=== PATIENT | male | born 1980 | race Caucasian/White ===

== ENCOUNTER 2017-03-15 12:24 | Inpatient (IN) ==
--- NOTE | 2017-03-15 13:29 | Emergency Department Note ---
Belén Butler Gwan, am scribing for, and in the presence of, Reinaldo Resendiz MD 13:02. Astrid Butler Phillip K, MD, personally performed the services described in this documentation, ascribed by Yvette Melissa in my presence, and it is both accurate and complete 328 . Arrival - Arrival Chief Complaint: Chest Pain Stated Complaint: shortness of breath; pleural effusion ED Nursing Triage Note: pt c/o of chest pain and sob that started three weeks ago. Mode of Arrival: Stretcher Limitations: No Limitations Source: Patient - History of Present Illness HPI Narrative: Pt is a 37 y/o male who presents to the ED for further evaluation of pleuritic chest pain on left with exacerbation with an onset 3 weeks ago. Patient stated that [place] and that he has had this pain intermittently since onset. He continued to note that due to receiving no relief, he reported to [facility] this morning and received a CT Scan and chest x-ray. It was determined that pt has large left pleural effusion with 5mm in size left nodule present. Patient also has increased density to left upper lobe. Patient also received lab work with NML results. This prompted staff at [place] to transport pt to ED for further evaluation. During exam, pt stated that his associated sxs have been dry cough. He confirmed a SHx of 1 pack cigarettes every 3 days. He denies any fever, N/V/D or any hx of medical problems. He confirmed that he was able to transport himself to [place] this morning. No other problems/complaint reported in ED. Onset (ago): week(s) Consistency: constant Severity: moderate Home Medications: Home Medications Medication Instructions Recorded Confirmed Type No Known Home Medications [No 03/15/17 03/15/17 History Known Home Medications] Review of System - Review of System 12 point system: reviewed and no additional remarkable complaints except as stated - Review of System Constitutional: Absent: chills, fever Eyes: Absent: vision change Head/Ears/Nose/Throat: Absent: earache Respiratory: Present: as per HPI, cough Cardiovascular: Present: as per HPI, chest pain Gastrointestinal: Absent: abdominal pain, nausea, vomiting, diarrhea Genitourinary male: Absent: urgency, dysuria Musculoskeletal: Absent: arm pain, back pain, lower back pain, leg pain Skin: Absent: rash, lesions Medical,Surgical,& Family Hx - Social History Smoking Status: Current every day smoker Frequency of Alcohol Use: Occasionally Type of Drug Use: None Exam Vital Signs: Vital Signs Temperature 98.2 F 03/15/17 13:17 Pulse Rate 89 03/15/17 13:17 Respiratory Rate 17 03/15/17 13:17 Blood Pressure 124/87 03/15/17 13:17 O2 Sat by Pulse Oximetry 98 03/15/17 13:17 - General General appearance: alert, in no apparent distress - Head Head exam: Present: atraumatic, normocephalic - Eye Eye exam: Present: normal appearance, PERRL, EOMI - ENT ENT exam: Present: normal oropharynx, mucous membranes moist, TM's normal bilaterally, normal external ear exam - Neck Neck exam: Present: full ROM, trachea midline. Absent: tenderness - Chest Chest inspection: Present: symmetric chest wall rise. Absent: tenderness - Respiratory Respiratory exam: Present: other (decreased breathe sounds left base) - Cardiovascular Cardiovascular exam: Present: regular rate, normal rhythm, normal heart sounds. Absent: murmur - Abdominal Exam Abdominal exam: Present: soft, normal bowel sounds. Absent: distention, tenderness - Extremities Exam Extremities exam: Present: full ROM. Absent: tenderness, calf tenderness - Back Exam Back exam: Present: full ROM. Absent: tenderness - Neurological Exam Neurological exam: Present: alert, oriented X3, CN II-XII intact. Absent: motor sensory deficit - Psychiatric Psychiatric exam: Present: normal affect, normal mood - Skin Skin exam: Present: warm, dry, intact, normal color Course Course Narrative: Patient discussed with the hospitalist. Results - Labs Lab Results: I have reviewed the patients labs (Labs from [facility] were reviewed and there was no abnormality noted.) Disposition Clinical Impression: Recurrent left pleural effusion, Pulmonary nodule, left, Pleuritic chest pain Case discussed with: patient Disposition: Still a Patient Condition: Stable Additional Instructions: Admit to the hospitalist with pulmonary consult for thoracentesis and definitive diagnosis.
[2017-03-15] MEDS ORDERED: ACETAMINOPHEN 325 MG TABLET PO PRN (13:57)
[2017-03-15] MEDS ORDERED: NICOTINE 21 MG/24 HR PATCH TRANSDERM PRN (13:57)
[2017-03-15] MEDS ORDERED: ZALEPLON 5 MG CAPSULE PO PRN (13:57)
--- NOTE | 2017-03-15 14:10 | Hospitalist History & Physical ---
Assessment and Plan - Time spent with patient Time spent discussing smoking cessation with patient: more than 10 minutes (1) Pleuritic chest pain Status: Acute Assessment and plan: This is likely secondary to the plueral effusion. He will probably need a thorocentesis. We will consult pulmonary to evaluate and treat as indicated. We will manage pain as needed Current Visit: Yes (2) Pulmonary nodule, left Status: Acute Assessment and plan: We will consult pulmonary to evaluate. Current Visit: Yes (3) Tobacco abuse Status: Acute Assessment and plan: Spoke in great detail with patient regarding smoking cessation. He acknowledges the need to stop and is open to any available options to assist him. We will order nicotine patch to help. Current Visit: Yes History of Present Illness Chief complaint: shortness of breath and chest pain. History of present illness: This is a relatively healthy 37 year old male that presented to the ED at [facility] as a lateral transfer from [facility] in [facility] for evaluation of shortness of breath, pleural effusion, and lymphadenopathy. He as no reported medical history. He reports a social history of daily nicotine use. He reports smoking one pack of cigarettes every 3 days. He denies elicit drug use. He presented to the ED at [place] with a chief complaint of shortness of breath x3 weeks. He was evaluated there. CT chest was ordered and revealed a large left pleural effusion and small pericardial effusion. In addition multiple scattered pulmonary nodules and a prominent lymph node in the anterior superior mediastinum was noted. The patient was transferred to [facility] for continuation of care. After discussion with Dr. Resendiz and Dr. Rodriguez, the patient will be admitted under the hospitalist services for medical management during the clinical encounter. We will consult pulmonary to evaluate and assist. Home Medications Medication Instructions Recorded Confirmed Type No Known Home Medications [No 03/15/17 03/15/17 History Known Home Medications] Medical,Surgical,& Family Hx - Medical History Medical History: noncontributory - Social History Smoking Status: Current every day smoker Frequency of Alcohol Use: Occasionally Type of Drug Use: None 12 point system: reviewed and no additional remarkable complaints except as stated Exam - Constitutional Vitals: Period Temp Pulse Resp BP Sys/Block Pulse Ox Last 24 Hr 98.2 F 89 17 124/87 98 General appearance: normal weight, no acute distress - Head Head exam: Present: normal inspection, normocephalic, atraumatic - Eye Eye exam: Present: EOMI. Absent: conjunctival injection, nystagmus, periorbital swelling Pupils: Present: DEMARCO, normal accommodation - ENT ENT exam: Present: normal exam, normal external ear exam, normal oropharynx - Neck Neck exam: Present: normal inspection. Absent: lymphadenopathy, meningismus, tenderness, thyromegaly - Respiratory Respiratory exam: Present: chest wall tenderness (left side upon gentle palpation), decreased breath sounds (Left side; lower lung bases) - Cardiovascular Cardiovascular exam: Present: regular rate and rhythm. Absent: carotid bruit, diastolic murmur, gallop, JVD, rubs, systolic murmur - GI/Abdominal GI/Abdominal exam: Present: normal bowel sounds, soft. Absent: firm, guarding, mass, tenderness, rebound - Extremities Exam Extremities exam: Present: normal inspection, normal capillary refill, full ROM. Absent: edema - Back Exam Back exam: Present: normal inspection - Neurological Exam Neurological exam: Present: alert, oriented X3, normal gait, CN II-XII intact. Absent: motor sensory deficit - Psychiatric Psychiatric exam: Present: normal affect, normal mood - Skin Skin exam: Present: normal color, warm, dry Quality Measures - VTE Deep Vein Thrombosis/Pulmonary Embolism Present on Admission: No Contraindication to Pharmacological VTE Prophylaxis: Clinical assessment deems Pt at low risk, no prophalaxis needed
--- NOTE | 2017-03-15 17:13 | Pulmonology Consult Note ---
Assessment and Plan (1) Recurrent left pleural effusion Status: Acute Assessment and plan: Patient has a left pleural effusion and not totally sure why. Will proceed with a thoracentesis for diagnosis. Current Visit: Yes (2) Pulmonary nodule, left Status: Acute Assessment and plan: It is unclear whether this is inflammation and infection or malignancy. Current Visit: Yes (3) Pleuritic chest pain Status: Acute Assessment and plan: Patient presents with mild pleurisy. Current Visit: Yes (4) Tobacco abuse Status: Acute Assessment and plan: Patient certainly needs to stop smoking. Current Visit: Yes History of Present Illness Chief complaint: Pleural effusion History of present illness: Mr. Aguayo is a 37 year old male that apparently is quite healthy and is not on any regular medicines. He is a smoker and works in [employer]. About 3 weeks ago he felt a catch in his left side and knees had a little bit of pleurisy since. He has a dry cough but no sputum production. He has not been having any fever or chills. He has been a little short of breath. He comes in because he has abnormal chest x-ray with a left pleural effusion and a nodular area in his left upper lung. Otherwise he has been relatively healthy. Home Medications Medication Instructions Recorded Confirmed Type No Known Home Medications [No 03/15/17 03/15/17 History Known Home Medications] Allergies Allergy/AdvReac Type Severity Reaction Status Date / Time No Known Allergies Allergy Verified 03/15/17 14:48 - Constitutional Constitutional: Absent: chills, fever(s), weight gain, weight loss - EENT Eyes: Absent: loss of vision Ears: Absent: decreased hearing Nose, mouth and throat: Absent: dysphagia, headache(s), hoarseness, sinus pressure - Cardiovascular Cardiovascular: Absent: edema, orthopnea, palpitations, PND - Respiratory Respiratory: Present: cough, dyspnea on exertion, pain on inspiration. Absent: hemoptysis - Gastrointestinal Gastrointestinal: Absent: abdominal pain, change in bowel habits, dysphagia, nausea, vomiting - Genitourinary Genitourinary: Absent: difficulty urinating, dysuria, hematuria, urinary frequency - Musculoskeletal Musculoskeletal: Absent: arthralgias, back pain, muscle weakness - Neurological Neurological: Absent: abnormal speech, focal weakness, paresthesias Exam (Pulmonay) H&P - Constitutional Vitals: Period Temp Pulse Resp BP Sys/Block Pulse Ox Last 24 Hr 98.2 F-98.3 F 69-89 17-20 117-124/69-87 98-98 General appearance: normal weight, no acute distress - Head Head exam: Present: normal inspection, normocephalic - Eye Eye exam: Present: EOMI. Absent: scleral icterus Pupils: Present: DEMARCO - ENT ENT exam: Present: normal exam - Neck Neck exam: Present: normal inspection. Absent: lymphadenopathy, thyromegaly - Respiratory Respiratory exam: Present: decreased breath sounds (He does have decreased breath sounds in the left base). Absent: rhonchi, wheezes - Cardiovascular Cardiovascular exam: Present: regular rate and rhythm. Absent: gallop, rubs, systolic murmur - GI/Abdominal GI/Abdominal exam: Present: normal bowel sounds, soft. Absent: distended, organomegaly, tenderness - Extremities Exam Extremities exam: Absent: calf tenderness, edema - Neurological Exam Neurological exam: Present: alert, oriented X3, normal gait, CN II-XII intact - Psychiatric Psychiatric exam: Present: normal mood - Skin Skin exam: Present: warm, dry Medical,Surgical,& Family Hx - Family History Family History: Reports;: Family Cancer, Family Diabetes (mom), Additional Family History (dad-prostate cancer) - Social History Smoking Status: Current every day smoker Frequency of Alcohol Use: Occasionally Type of Drug Use: None Results - Diagnostic Findings Procedure: Chest x-ray: image reviewed by me, report reviewed by me (Chest x- ray does have a left pleural effusion), CT - chest: image reviewed by me, report reviewed by me (CT shows a left pleural effusion and a nodular area in the left upper lung medially) Quality Measures - VTE Deep Vein Thrombosis/Pulmonary Embolism Present on Admission: No Contraindication to Pharmacological VTE Prophylaxis: Clinical assessment deems Pt at low risk, no prophalaxis needed
--- NOTE | 2017-03-15 17:47 | Operative Note ---
Date of procedure: 03/15/17 Pre-op diagnosis: Left pleural effusion Post-op diagnosis: same Procedure: Patient is a 37-year-old that has had pleurisy for several weeks. He now has a fairly large left pleural effusion. Thoracentesis will be done for diagnosis. Procedure: The left chest was prepped in the usual manner. 1% lidocaine was used for anesthesia. A needle was inserted into the left posterior chest and fluid was removed. Then a catheter was inserted into the left posterior chest. Then 1100 cc of yellow fluid was removed. The fluid was sent for studies. The fluid could be a parapneumonic effusion. Patient tolerated procedure well. Impression: Large left pleural effusion which could be a parapneumonic effusion or possibly even malignant. Plan: We will await studies before deciding further investigation. Anesthesia: local Surgeon / Physician: Lyndon Brown Estimated blood loss: none Specimens: other (Pleural fluid was sent for studies.) Condition: stable Disposition: floor Discharge Plan - Discharge Medications No Action No Known Home Medications [No Known Home Medications] - Follow Up or Referral - Forms/Instructions
[2017-03-15] MEDS ORDERED: guaiFENesin/CODEINE 5 ML LIQUID PO PRN (17:49)
[2017-03-15] MEDS: cefTRIAXone 1,000 MG in SODIUM CHLORIDE 0.9% 100 ML IV SCH (18:35)
[2017-03-15 18:47] LABS: RBC,Pleural Fluid 6020 T/CUMM
--- NOTE | 2017-03-15 18:57 | XRay Report ---
Exam: XR chest 1V portable Indication: Status post left thoracentesis by pulmonology Comparison study: 03/15/2017 at 8:43 AM Findings: Please note, inspiratory/expiratory imaging was not obtained for this procedure, thus somewhat limiting evaluation for small pneumothorax. No obvious pneumothorax is visualized. Opacities overlying the left lower chest are significantly decreased from prior with minimal residual probable atelectasis and trace pleural fluid. Right lung is predominantly clear. Cardiac silhouette and mediastinal contours appear within normal limits. There is no acute osseous abnormality. Impression: No definite pneumothorax is visualized. Improved aeration within the left lung base as compared to prior. PROCEDURE INTERPRETED AT [facility] DEPARTMENT OF RADIOLOGY Final Report Signed by: Damián Freeman
[2017-03-15 19:36] LABS: Lymphocytes,Pleural Fluid 18 %; Monocytes,Pleural Fluid 12 %; Neutrophils,Pleural Fluid 70 %
[2017-03-15] MEDS: HYDROmorphone 2 MG/1 ML VIAL IV PRN (20:06)
[2017-03-15] MEDS ORDERED: cefTRIAXone 1,000 MG in SODIUM CHLORIDE 0.9% 100 ML IV SCH (20:30)
[2017-03-15] MEDS: AZITHROMYCIN INJ 500 MG in SODIUM CHLORIDE 0.9% 250 ML IV SCH (20:42)
[2017-03-15] MEDS: DOCUSATE SODIUM 100 MG CAPSULE PO SCH (20:50)
[2017-03-16 06:21] LABS: Basophils # 0.2 10*3/uL (0.0-0.2); Eosinophils # 0.7 10*3/uL (0.0-0.87); Eosinophils % 4.2 % (0.00-10.9); Hemoglobin 13.8 GM/DL (14.0-18.0); Immature Granulocytes % 0.6 %; Immature Granulocytes Absolute 0.09 #; Lymphocytes # 2.4 10*3/uL (1.4-4.0); Lymphocytes % 14.8 % (21.2-54.2); Mean Corpuscular HGB Conc 32.1 GM/DL (32-36); Mean Corpuscular Hemoglobin 30 PG (27-34); Mean Corpuscular Volume 93.5 FL (87-102); Mean Platelet Volume 10.5 FL (9.6-12.0); Monocytes # 1.6 10*3/uL (0.11-0.8); Monocytes % 9.8 % (1.7-12.7); Neutrophils # 11.4 10*3/uL (1.4-7.4); Neutrophils % 69.6 % (38.7-73.9); Platelet Count 422 T/CUMM (130-400); Red Cell Distribution Width 12.9 % (9.3-17.3); White Blood Count 16.3 T/CUMM (4-12)
[2017-03-16 07:03] LABS: Alanine Aminotransferase < 9 U/L (16-61); Albumin 3.1 G/DL (3.4-5.0); Alkaline Phosphatase 104 U/L (45-117); Aspartate Amino Transferase 7 U/L (0-37); Blood Urea Nitrogen 15 MG/DL (7-18); Calcium 8.3 MG/DL (8.5-10.1); Cholesterol 135 MG/DL (50-200); Free T4 (Free Thyroxine) 1.08 NG/DL (0.76-1.46); Glucose 88 MG/DL (74-106); HDL Cholesterol 43 MG/DL (40-60); Magnesium 2.5 MG/DL (1.8-2.4); Osmolality,Calculated 278.4 MOS/KG (273-304); Potassium 4.4 MMOL/L (3.5-5.1); Risk Ratio 3.14; Sodium 140 MMOL/L (136-145); Thyroid Stimulating Hormone 0.519 uIU/ml (0.358-3.74); Total Protein 6.2 G/DL (6.4-8.3); Triglycerides 79 MG/DL (2-150); VLDL CHOLESTEROL 15.8 MG/DL
--- NOTE | 2017-03-16 08:21 | XRay Report ---
Referring Physician: EMMY Asif Exam: XR chest 1V portable Date: March 16, 2017 at 4:00 AM Reason: Shortness of breath Comparison: Chest one view portable March 15, 2017, CT chest March 15, 2017 Findings: The cardiac silhouette is normal in size. There are scattered opacities within the left lung, mainly within the left lower lung zone. Small scattered nodular opacities were also seen within the right lung on a recent CT but are not well demonstrated on this radiograph. This could represent atelectasis and pneumonia, but a neoplastic process cannot be excluded. No pneumothorax is identified, but there is mild to moderate left pleural fluid. The osseous structures appear stable. Impression: The left pleural fluid has increased since the previous study, and there is likely increased atelectasis within the left lung. Follow-up is recommended to confirm resolution. PROCEDURE INTERPRETED AT [facility] DEPARTMENT OF RADIOLOGY Final Report Signed by: Dr. Renaldo Vela
--- NOTE | 2017-03-16 08:48 | Pulmonology Progress Note ---
Pulmonary - PN: Subj Interval history: Patient is a 37-year-old that has been very healthy. He is a smoker but has not had a lot of symptoms. He has had a little bit of pleurisy off and on for 3 weeks. He has had a little bit of a cough but not much fever. He has not had any systemic symptoms otherwise. He did have a large left pleural effusion and we did a thoracentesis yesterday. The fluid does look inflammatory and cytology is pending. On his CT scan he has some tiny nodules in his right lung which may be granulomas. He does have an inflammatory-looking area in the left upper lobe anteriorly which could be a density or infiltrate. He is getting antibiotics now and will see if this clears up. This probably could be approached with a needle biopsy anteriorly. Exam (Progress Note) - Constitutional Vitals: Period Temp Pulse Resp BP Sys/Block Pulse Ox Last 24 Hr 98.2 F-100.1 F 69-98 17-20 103-133/62-87 92-99 Exam: General appearance: normal weight, no acute distress, he does look healthy - Head Head exam: Present: normal inspection, normocephalic - Eye Eye exam: Present: EOMI. Absent: scleral icterus Pupils: Present: DEMARCO - ENT ENT exam: Present: normal exam - Neck Neck exam: Present: normal inspection. Absent: lymphadenopathy, thyromegaly - Respiratory Respiratory exam: Present: He has better breath sounds on the left and is moving air fairly well now. - Cardiovascular Cardiovascular exam: Present: regular rate and rhythm. Absent: gallop, rubs, systolic murmur - GI/Abdominal GI/Abdominal exam: Present: normal bowel sounds, soft. Absent: distended, organomegaly, tenderness - Extremities Exam Extremities exam: Absent: calf tenderness, edema - Neurological Exam Neurological exam: Present: alert, oriented X3, normal gait, CN II-XII intact - Psychiatric Psychiatric exam: Present: normal mood - Skin Skin exam: Present: warm, dry Results - Labs CBC & BMP: 03/16/17 05:16 03/16/17 05:16 Labs: Pleural fluid protein is 5.2 and the white count is 4300. - Diagnostic Findings Procedure: Chest x-ray: image reviewed by me, report reviewed by me (Chest x- ray shows some mild left pleural effusion now.) Assessment and Plan (1) Recurrent left pleural effusion Status: Acute Assessment and plan: Patient has an exudative left pleural effusion and the cytology is pending. Cultures are also still pending. Current Visit: Yes (2) Pulmonary nodule, left Status: Acute Assessment and plan: It is unclear whether this is inflammation and infection or malignancy. There is a patchy area in the left upper lobe anteriorly that could be an area of pneumonia or tumor. This may need to be needled if it does not clear. Will check the pleural fluid cytology. Current Visit: Yes (3) Pleuritic chest pain Status: Acute Assessment and plan: Patient presents with mild pleurisy. His breathing is better now. Current Visit: Yes (4) Tobacco abuse Status: Acute Assessment and plan: Patient certainly needs to stop smoking. Current Visit: Yes
--- NOTE | 2017-03-16 09:13 | Hospitalist Progress Note ---
<Sailaja Asifda - Last Filed: 03/16/17 09:11> Assessment and Plan (1) Pleuritic chest pain Status: Acute Assessment and plan: This is likely secondary to the plueral effusion. He will probably need a thorocentesis. We will consult pulmonary to evaluate and treat as indicated. We will manage pain as needed 5/2-Thorocentesis on yesterday; 1100 ml removed. Will continue to manage pain. C /S of pleural results pending; WBC 16.3; continue empiric coverage as ordered. Current Visit: Yes (2) Pulmonary nodule, left Status: Acute Assessment and plan: We will consult pulmonary to evaluate. 5/2-Agree with Pulmonary; patient will need biopsy to evaluate. Pulmonary to manage. Current Visit: Yes (3) Tobacco abuse Status: Acute Assessment and plan: Spoke in great detail with patient regarding smoking cessation. He acknowledges the need to stop and is open to any available options to assist him. We will order nicotine patch to help. 5/2-Nicotine patch in place. Current Visit: Yes Hospitalist: Subjective Interval history: Patient seen and examined. No significant overnight events reports. Thorocentesis on yesterday; 1100 ml removed. Patient reports "feeling and breathing better". Exam - Constitutional Vitals: Period Temp Pulse Resp BP Sys/Block Pulse Ox Last 24 Hr 98.2 F-100.1 F 69-98 17-20 103-133/62-87 92-99 General appearance: normal weight, no acute distress - Head Head exam: Present: normal inspection, normocephalic, atraumatic - Eye Eye exam: Present: EOMI. Absent: conjunctival injection, nystagmus Pupils: Present: DEMARCO, normal accommodation - ENT ENT exam: Present: normal exam, normal external ear exam, normal oropharynx - Neck Neck exam: Present: normal inspection. Absent: lymphadenopathy, meningismus, tenderness, thyromegaly - Respiratory Respiratory exam: Present: chest wall tenderness (left side), decreased breath sounds (Left side). Absent: rales, rhonchi, stridor, wheezes - Cardiovascular Cardiovascular exam: Present: regular rate and rhythm. Absent: carotid bruit, diastolic murmur, gallop, JVD, rubs, systolic murmur - GI/Abdominal GI/Abdominal exam: Present: normal bowel sounds, soft. Absent: ascites, distended, firm, guarding - Extremities Exam Extremities exam: Present: normal inspection, normal capillary refill, full ROM. Absent: edema - Back Exam Back exam: Present: normal inspection - Neurological Exam Neurological exam: Present: alert, oriented X3, CN II-XII intact - Psychiatric Psychiatric exam: Present: normal affect, normal mood - Skin Skin exam: Present: normal color, warm, dry Results - Labs CBC & BMP: 03/16/17 05:16 03/16/17 05:16 Lab Results: I have reviewed the past 24 hour labs Quality Measures - VTE Deep Vein Thrombosis/Pulmonary Embolism Present on Admission: No Contraindication to Pharmacological VTE Prophylaxis: Clinical assessment deems Pt at low risk, no prophalaxis needed <Nida Sousa - Last Filed: 03/16/17 09:49> Hospitalist: Subjective Interval history: Patient seen and examined along with SHU Asif, agree with history, assessment and plan as documented. Thoracentesis yesterday, pulmonary managing. Will check an SIDNEY. Exam - Constitutional Vitals: Period Temp Pulse Resp BP Sys/Block Pulse Ox Last 24 Hr 98.2 F-100.1 F 69-98 17-20 103-133/62-87 92-99 Results - Labs CBC & BMP: 03/16/17 05:16 03/16/17 05:16
[2017-03-16] MEDS: DOCUSATE SODIUM 100 MG CAPSULE PO SCH ×2 (10:47→21:24)
[2017-03-16] MEDS: PANTOPRAZOLE 40 MG TABLET PO SCH (10:47)
[2017-03-16] MEDS: HYDROmorphone 2 MG/1 ML VIAL IV PRN (19:33)
[2017-03-16] MEDS: AZITHROMYCIN INJ 500 MG in SODIUM CHLORIDE 0.9% 250 ML IV SCH (21:23)
[2017-03-16] MEDS: cefTRIAXone 1,000 MG in SODIUM CHLORIDE 0.9% 100 ML IV SCH (23:33)
[2017-03-17 06:52] LABS: HIV Antigen/Antibody Result Nonreactive (Nonreactive)
[2017-03-17 06:59] LABS: Basophils # 0.1 10*3/uL (0.0-0.2); Eosinophils # 0.8 10*3/uL (0.0-0.87); Eosinophils % 5.5 % (0.00-10.9); Hematocrit 42.5 VOL% (42.0-52.0); Hemoglobin 13.7 GM/DL (14.0-18.0); Immature Granulocytes % 0.7 %; Lymphocytes # 2.4 10*3/uL (1.4-4.0); Lymphocytes % 16.5 % (21.2-54.2); Mean Corpuscular HGB Conc 32.2 GM/DL (32-36); Mean Corpuscular Hemoglobin 30 PG (27-34); Mean Corpuscular Volume 92.8 FL (87-102); Mean Platelet Volume 10.4 FL (9.6-12.0); Monocytes # 1.7 10*3/uL (0.11-0.8); Monocytes % 11.9 % (1.7-12.7); Neutrophils # 9.5 10*3/uL (1.4-7.4); Neutrophils % 64.4 % (38.7-73.9); Platelet Count 383 T/CUMM (130-400); Red Blood Count 4.58 MC/CUMM (3.8-5.5); Red Cell Distribution Width 12.9 % (9.3-17.3); White Blood Count 14.6 T/CUMM (4-12)
[2017-03-17] MEDS: PANTOPRAZOLE 40 MG TABLET PO SCH (08:36)
[2017-03-17] MEDS: DOCUSATE SODIUM 100 MG CAPSULE PO SCH ×2 (08:36→21:26)
--- NOTE | 2017-03-17 09:05 | Pulmonology Progress Note ---
Pulmonary - PN: Subj Interval history: Patient is a 37-year-old that has been very healthy. He is a smoker but has not had a lot of symptoms. He has had a little bit of pleurisy off and on for 3 weeks. He has had a little bit of a cough but not much fever. He has not had any systemic symptoms otherwise. He did have a large left pleural effusion and we did a thoracentesis. The fluid does look inflammatory and cytology is pending. On his CT scan he has some tiny nodules in his right lung which may be granulomas. He does have an inflammatory-looking area in the left upper lobe anteriorly which could be a density or infiltrate. He has had a low grade fever or pleurisy is better. So far the cultures are negative. I reviewed the CT with radiology and the patchy area in the left upper lobe certainly could be a small area of pneumonia. We will continue treatment with antibiotics for now. Will await the cytology on the fluid. Exam (Progress Note) - Constitutional Vitals: Period Temp Pulse Resp BP Sys/Block Pulse Ox Last 24 Hr 98.3 F-99.7 F 79-96 16-18 108-128/62-85 92-97 Exam: General appearance: normal weight, no acute distress, he does look healthy, his maximum temperature was 99.7 - Head Head exam: Present: normal inspection, normocephalic - Eye Eye exam: Present: EOMI. Absent: scleral icterus Pupils: Present: DEMARCO - ENT ENT exam: Present: normal exam - Neck Neck exam: Present: normal inspection. Absent: lymphadenopathy, thyromegaly - Respiratory Respiratory exam: Present: He has better breath sounds on the left and is moving air fairly well now. - Cardiovascular Cardiovascular exam: Present: regular rate and rhythm. Absent: gallop, rubs, systolic murmur - GI/Abdominal GI/Abdominal exam: Present: normal bowel sounds, soft. Absent: distended, organomegaly, tenderness - Extremities Exam Extremities exam: Absent: calf tenderness, edema - Neurological Exam Neurological exam: Present: alert, oriented X3, normal gait, CN II-XII intact - Psychiatric Psychiatric exam: Present: normal mood - Skin Skin exam: Present: warm, dry Results - Labs CBC & BMP: 03/17/17 06:02 03/16/17 05:16 Assessment and Plan (1) Recurrent left pleural effusion Status: Acute Assessment and plan: Patient has an exudative left pleural effusion and the cytology is pending. Cultures are negative so far. We will continue antibiotics and check a chest x- ray tomorrow. Current Visit: Yes (2) Pulmonary nodule, left Status: Acute Assessment and plan: It is unclear whether this is inflammation and infection or malignancy. There is a patchy area in the left upper lobe anteriorly that could be an area of pneumonia or tumor. We will follow this for a little while and see if it clears. Current Visit: Yes (3) Pleuritic chest pain Status: Acute Assessment and plan: Patient presents with mild pleurisy. His breathing is better now. Current Visit: Yes (4) Tobacco abuse Status: Acute Assessment and plan: Patient certainly needs to stop smoking. Current Visit: Yes
--- NOTE | 2017-03-17 10:45 | Pathology Report from [facility] ---
ACCESSION # : [id number] PATIENT NAME : Yassine Aguayo ORDERING DR : SHELDON LORD MD CLINICAL HX: Pleurisy, Left Pleural Effusion POST-OP DX: Same SPECIMEN INFO: Fluid,Pleural-Left - 1100 ml's le[place]on, cloudy CLASS: II CLASS COMMENTS: Much chronic inflammation with increased eosinophils, a few multinucleated cells and a few reactive mesothelial cellsCELL BLOCK: Same CLASS LEGEND: CLASS 0 Material inadequate for diagnosis because of (see comment) CLASS I Absence of atypical or abnormal cells CLASS II Atypical Cytology but no evidence of malignancy CLASS III Cytology suggestive of but not conclusive for malignancy CLASS IV Cytology strongly suggestive of malignancy CLASS V Cytology conclusive for malignancy SERVICE DATE: 03/16/2017 REPORT DATE: 03/17/2017 PATHOLOGIST: Len Rojas
--- NOTE | 2017-03-17 11:21 | Hospitalist Progress Note ---
<Sailaja Asifda - Last Filed: 03/17/17 11:19> Assessment and Plan (1) Pleuritic chest pain Status: Acute Assessment and plan: This is likely secondary to the plueral effusion. He will probably need a thorocentesis. We will consult pulmonary to evaluate and treat as indicated. We will manage pain as needed 5/2-Thorocentesis on yesterday; 1100 ml removed. Will continue to manage pain. C /S of pleural results pending; WBC 16.3; continue empiric coverage as ordered. 5/3-Continues to verbalize slight chest wall discomfort; reports slight improvement of pain. C/S of pleural fluid pending; WBC down to 14.6 today from 16.3 on yesterday. BC NGTD. Continue empiric coverage as previously ordered. Current Visit: Yes (2) Pulmonary nodule, left Status: Acute Assessment and plan: We will consult pulmonary to evaluate. 5/2-Agree with Pulmonary; patient will need biopsy to evaluate. Pulmonary to manage. 5/3-Pulmonary to manage Current Visit: Yes (3) Tobacco abuse Status: Acute Assessment and plan: Spoke in great detail with patient regarding smoking cessation. He acknowledges the need to stop and is open to any available options to assist him. We will order nicotine patch to help. 5/2-Nicotine patch in place. 5/3-Nicotine patch in place Current Visit: Yes Hospitalist: Subjective Interval history: Patient seen and evaluated. No significant overnight events. WBC trending down to 14.6 today down from 16.3 on yesterday. Blood cultures; no growth to date. Awaiting cytology results. Exam - Constitutional Vitals: Period Temp Pulse Resp BP Sys/Block Pulse Ox Last 24 Hr 98.3 F-99.7 F 79-96 16-18 108-128/62-85 92-97 General appearance: normal weight, no acute distress - Head Head exam: Present: normal inspection, normocephalic, atraumatic - Eye Eye exam: Present: EOMI. Absent: conjunctival injection Pupils: Present: DEMARCO, normal accommodation - ENT ENT exam: Present: normal exam, normal external ear exam, normal oropharynx - Neck Neck exam: Present: normal inspection. Absent: lymphadenopathy, meningismus, tenderness, thyromegaly - Respiratory Respiratory exam: Present: chest wall tenderness (left side), decreased breath sounds (left lower lobe diminished) - Cardiovascular Cardiovascular exam: Present: regular rate and rhythm. Absent: carotid bruit, diastolic murmur, gallop, JVD, rubs, systolic murmur - GI/Abdominal GI/Abdominal exam: Present: normal bowel sounds, soft. Absent: mass, tenderness - Extremities Exam Extremities exam: Present: normal inspection, normal capillary refill, full ROM , edema - Back Exam Back exam: Present: normal inspection - Neurological Exam Neurological exam: Present: alert, oriented X3, normal gait, CN II-XII intact - Psychiatric Psychiatric exam: Present: normal affect, normal mood - Skin Skin exam: Present: normal color, warm, dry Results - Labs CBC & BMP: 03/17/17 06:02 03/16/17 05:16 Lab Results: I have reviewed the past 24 hour labs Quality Measures - VTE Deep Vein Thrombosis/Pulmonary Embolism Present on Admission: No Contraindication to Pharmacological VTE Prophylaxis: Clinical assessment deems Pt at low risk, no prophalaxis needed <Nida Sousa - Last Filed: 03/17/17 17:00> Hospitalist: Subjective Interval history: Patient seen and examined independently of MAMMALOGIST Yefri, agree with history, assessment and plan as documented. Pulmonary managing. CXR in am. Exam - Constitutional Vitals: Period Temp Pulse Resp BP Sys/Block Pulse Ox Last 24 Hr 98.3 F-99.7 F 79-93 18-18 108-128/64-85 92-97 Results - Labs CBC & BMP: 03/17/17 06:02 03/16/17 05:16
[2017-03-17] MEDS: AZITHROMYCIN INJ 500 MG in SODIUM CHLORIDE 0.9% 250 ML IV SCH (21:26)
[2017-03-17] MEDS: cefTRIAXone 1,000 MG in SODIUM CHLORIDE 0.9% 100 ML IV SCH (23:30)
[2017-03-18 07:25] LABS: Basophils # 0.1 10*3/uL (0.0-0.2); Basophils % 0.8 % (0.0-0.8); Eosinophils # 0.9 10*3/uL (0.0-0.87); Eosinophils % 6.1 % (0.00-10.9); Hematocrit 39.1 VOL% (42.0-52.0); Hemoglobin 12.9 GM/DL (14.0-18.0); Immature Granulocytes % 0.7 %; Immature Granulocytes Absolute 0.11 #; Lymphocytes # 2.3 10*3/uL (1.4-4.0); Lymphocytes % 15.2 % (21.2-54.2); Mean Corpuscular Hemoglobin 30 PG (27-34); Mean Corpuscular Volume 91.1 FL (87-102); Mean Platelet Volume 10.7 FL (9.6-12.0); Monocytes # 1.7 10*3/uL (0.11-0.8); Monocytes % 11.5 % (1.7-12.7); Neutrophils # 9.7 10*3/uL (1.4-7.4); Neutrophils % 65.7 % (38.7-73.9); Platelet Count 374 T/CUMM (130-400); Red Blood Count 4.29 MC/CUMM (3.8-5.5); Red Cell Distribution Width 12.8 % (9.3-17.3); White Blood Count 14.8 T/CUMM (4-12)
[2017-03-18 07:54] LABS: Alanine Aminotransferase 11 U/L (16-61); Albumin 2.7 G/DL (3.4-5.0); Alkaline Phosphatase 88 U/L (45-117); Aspartate Amino Transferase 8 U/L (0-37); Bilirubin,Total < 0.39 MG/DL (0.2-1.0); Blood Urea Nitrogen 13 MG/DL (7-18); Calcium 8.1 MG/DL (8.5-10.1); Glucose 90 MG/DL (74-106); Magnesium 2.4 MG/DL (1.8-2.4); Osmolality,Calculated 278.4 MOS/KG (273-304); Phosphorous 2.7 MG/DL (2.5-4.9); Potassium 4.5 MMOL/L (3.5-5.1); Sodium 140 MMOL/L (136-145); Total Protein 5.9 G/DL (6.4-8.3)
--- NOTE | 2017-03-18 08:35 | XRay Report ---
2 view chest. Indication: Left-sided pleural effusion. Comparison: March 16, 2017. The heart is normal in size. The pulmonary vasculature is normal. The right lung is clear. There is a prominent pleural effusion on the left. It has increased in size since the previous study. Osseous structures are unchanged. Impression: Continued increase of the left-sided pleural effusion. PROCEDURE INTERPRETED AT [facility] DEPARTMENT OF RADIOLOGY Final Report Signed by: Dr. Annie Seymour
[2017-03-18] MEDS: PANTOPRAZOLE 40 MG TABLET PO SCH (08:43)
[2017-03-18] MEDS: DOCUSATE SODIUM 100 MG CAPSULE PO SCH ×2 (08:43→22:07)
--- NOTE | 2017-03-18 09:59 | Pulmonology Progress Note ---
Pulmonary - PN: Subj Interval history: Patient is a 37-year-old that has been very healthy. He is a smoker but has not had a lot of symptoms. He presented with pleurisy and cough and had a left pleural effusion. He also had a left upper lobe consolidation. He has been on antibiotics for pneumonia. His temp was a little over 99 but is down now. He seems to be feeling better but he still has a little bit of pleurisy. Otherwise he looks quite healthy. The pleural fluid did show some inflammation and is an exudate. Cytology is negative. The pleural fluid is coming back a little bit. He still looks quite healthy. Exam (Progress Note) - Constitutional Vitals: Period Temp Pulse Resp BP Sys/Block Pulse Ox Last 24 Hr 97.4 F-98.8 F 83-92 18-20 103-120/61-71 94-95 Exam: General appearance: normal weight, no acute distress, he does look healthy, his temperature is better now. - Head Head exam: Present: normal inspection, normocephalic - Eye Eye exam: Present: EOMI. Absent: scleral icterus Pupils: Present: DEMARCO - ENT ENT exam: Present: normal exam - Neck Neck exam: Present: normal inspection. Absent: lymphadenopathy, thyromegaly - Respiratory Respiratory exam: Present: He has better breath sounds on the left and is moving air fairly well now. He still has decreased breath sounds in the left base - Cardiovascular Cardiovascular exam: Present: regular rate and rhythm. Absent: gallop, rubs, systolic murmur - GI/Abdominal GI/Abdominal exam: Present: normal bowel sounds, soft. Absent: distended, organomegaly, tenderness - Extremities Exam Extremities exam: Absent: calf tenderness, edema - Neurological Exam Neurological exam: Present: alert, oriented X3, normal gait, CN II-XII intact - Psychiatric Psychiatric exam: Present: normal mood - Skin Skin exam: Present: warm, dry Results - Labs CBC & BMP: 03/18/17 06:41 03/18/17 06:41 - Diagnostic Findings Procedure: Chest x-ray: image reviewed by me, report reviewed by me (There is a little more left pleural effusion today.) Assessment and Plan (1) Recurrent left pleural effusion Status: Acute Assessment and plan: Patient has an exudative left pleural effusion and the cytology is negative. Cultures are negative so far. This is probably a parapneumonic effusion. We will go ahead and do another thoracentesis. Current Visit: Yes (2) Pulmonary nodule, left Status: Acute Assessment and plan: It is unclear whether this is inflammation and infection or malignancy. There is a patchy area in the left upper lobe anteriorly that could be an area of pneumonia or tumor. Will probably need to watch him closely as an outpatient Current Visit: Yes (3) Pleuritic chest pain Status: Acute Assessment and plan: Patient presents with mild pleurisy. His breathing is better now. Current Visit: Yes (4) Tobacco abuse Status: Acute Assessment and plan: Patient certainly needs to stop smoking. Current Visit: Yes
--- NOTE | 2017-03-18 10:02 | Discharge Summary ---
Diagnosis - Discharge Diagnosis (1) Pleuritic chest pain Status: Acute (2) Pulmonary nodule, left Status: Acute (3) Tobacco abuse Status: Acute Discharge Plan - Discharge Medications No Action No Known Home Medications [No Known Home Medications] - Follow Up or Referral - Forms/Instructions Exam - Constitutional Vitals: Period Temp Pulse Resp BP Sys/Block Pulse Ox Last 24 Hr 97.4 F-98.8 F 83-92 18-20 103-120/61-71 94-95 Discharge Results Procedures and tests throughout hospitalization: Pending Orders 03/15/17 17:43 Cytology Request Routine 03/15/17 18:00 AFB Culture/Smears Routine Fungal Culture w/ Prep Routine Labs on day of discharge: Labs from last 24 hours 03/18/17 03/18/17 06:41 06:41 WBC 14.8 H RBC 4.29 Hgb 12.9 L Hct 39.1 L MCV 91.1 MCH 30 MCHC 33.0 RDW 12.8 Plt Count 374 MPV 10.7 Neut % (Auto) 65.7 Lymph % (Auto) 15.2 L Braxton % (Auto) 11.5 Eos % (Auto) 6.1 Baso % (Auto) 0.8 Neut # (Auto) 9.7 H Lymph # (Auto) 2.3 Braxton # (Auto) 1.7 H Eos # (Auto) 0.9 H Baso # (Auto) 0.1 Immature Gran % 0.7 Nucleated RBC % 0.0 Immature Gran # 0.11 Nucleated RBCs # 0.00 Sodium 140 Potassium 4.5 Chloride 104 Carbon Dioxide 30 Anion Gap 10.5 BUN 13 Creatinine 1.00 GFR Calculation 122 BUN/Creatinine Ratio 13.00 Glucose 90 Calculated Osmolality 278.4 Calcium 8.1 L Phosphorus 2.7 Magnesium 2.4 Total Bilirubin < 0.39 AST 8 ALT 11 L Alkaline Phosphatase 88 Total Protein 5.9 L Albumin 2.7 L Globulin 3.2 Albumin/Globulin Ratio 0.8 L DS: Provider Date of admission: 03/15/17 13:14 Primary care physician: . No PCP Attending physician on admission: Jaxson Asif CNP Consults: 03/15/17 13:57 Consult to Physician [CONS] Routine Comment: Consulting Provider: Lyndon Brown Consulting Provider Notified: No When should Consulting Provider be notified: Now When should Consulting Provider be notified: Now Person Notified: Bridget Date Notified: 03/15/17 Time Notified: 16:46 Consult Notification Comment: Bridget called back at [address] Brown is not saloon keeper, Dr Eden is and it will go to him. At 1653 I called Beatriz and gave her the consult for Dr Eden. 03/15/17 15:41 Consult to Pharmacy [CONS] Routine Reason for Pharmacy Consult: Adjust Meds Renal Funct Discharging clinician: Jaxson Asif CNP
--- NOTE | 2017-03-18 10:09 | Hospitalist Progress Note ---
<Sailaja Asifda - Last Filed: 03/18/17 10:04> Assessment and Plan (1) Pleuritic chest pain Status: Acute Assessment and plan: This is likely secondary to the plueral effusion. He will probably need a thorocentesis. We will consult pulmonary to evaluate and treat as indicated. We will manage pain as needed 5/2-Thorocentesis on yesterday; 1100 ml removed. Will continue to manage pain. C /S of pleural results pending; WBC 16.3; continue empiric coverage as ordered. 5/3-Continues to verbalize slight chest wall discomfort; reports slight improvement of pain. C/S of pleural fluid pending; WBC down to 14.6 today from 16.3 on yesterday. BC NGTD. Continue empiric coverage as previously ordered. 5/4-CXR reports recurrence of plueral fluid on left lung; thorocentesis this afternoon per Pulmonary. Current Visit: Yes (2) Pulmonary nodule, left Status: Acute Assessment and plan: We will consult pulmonary to evaluate. 5/2-Agree with Pulmonary; patient will need biopsy to evaluate. Pulmonary to manage. 5/3-Pulmonary to manage 5/4-Pulmonary to manage Current Visit: Yes (3) Tobacco abuse Status: Acute Assessment and plan: Spoke in great detail with patient regarding smoking cessation. He acknowledges the need to stop and is open to any available options to assist him. We will order nicotine patch to help. 5/2-Nicotine patch in place. 5/3-Nicotine patch in place 5/4-Nicotine patch in place Current Visit: Yes Hospitalist: Subjective Interval history: Patient seen and examined; no significant overnight events. Chest xray shows recurrent left pleural effusion; thorocentesis per Pulmonary this afternoon Exam - Constitutional Vitals: Period Temp Pulse Resp BP Sys/Block Pulse Ox Last 24 Hr 97.4 F-98.8 F 83-92 18-20 103-120/61-71 94-95 General appearance: normal weight, no acute distress - Head Head exam: Present: normal inspection, normocephalic - Eye Eye exam: Present: EOMI. Absent: conjunctival injection Pupils: Present: DEMARCO, normal accommodation - ENT ENT exam: Present: normal exam, normal external ear exam, normal oropharynx - Neck Neck exam: Present: normal inspection, lymphadenopathy, meningismus, tenderness , thyromegaly - Respiratory Respiratory exam: Present: decreased breath sounds. Absent: rales, rhonchi, stridor, wheezes - Cardiovascular Cardiovascular exam: Present: regular rate and rhythm. Absent: carotid bruit, diastolic murmur, gallop, JVD, rubs, systolic murmur - GI/Abdominal GI/Abdominal exam: Present: normal bowel sounds, hyperactive bowel sounds, hypoactive bowel sounds, soft - Extremities Exam Extremities exam: Present: normal inspection, normal capillary refill, full ROM. Absent: edema - Back Exam Back exam: Present: normal inspection - Neurological Exam Neurological exam: Present: alert, oriented X3, CN II-XII intact - Psychiatric Psychiatric exam: Present: normal affect, normal mood - Skin Skin exam: Present: normal color, warm, dry Results - Labs CBC & BMP: 03/18/17 06:41 03/18/17 06:41 Lab Results: I have reviewed the past 24 hour labs Quality Measures - VTE Deep Vein Thrombosis/Pulmonary Embolism Present on Admission: No Contraindication to Pharmacological VTE Prophylaxis: Clinical assessment deems Pt at low risk, no prophalaxis needed <Nida Sousa - Last Filed: 03/18/17 15:38> Hospitalist: Subjective Interval history: Patient seen and examined independently of POLYMER CHEMIST Yefri, agree with assessment and plan as documented. Patient denies shortness of breath. Repeat thoracentesis with 700cc removed. Exam - Constitutional Vitals: Period Temp Pulse Resp BP Sys/Block Pulse Ox Last 24 Hr 97.4 F-98.8 F 72-92 18-20 103-124/61-71 94-98 Results - Labs CBC & BMP: 03/18/17 06:41 03/18/17 06:41
--- NOTE | 2017-03-18 14:24 | Operative Note ---
Date of procedure: 03/18/17 Pre-op diagnosis: Parapneumonic effusion Post-op diagnosis: same Procedure: The patient is a 37-year-old that has a left parapneumonic effusion. Will repeat a thoracentesis today. Procedure: The left chest was prepped in the usual manner. 1% lidocaine was used for anesthesia. A needle was inserted into the left posterior chest and fluid was removed. Then a catheter was inserted into the left posterior chest. Then 700 cc of yellow fluid was removed. It still looks like an exudate but is not more purulent. The fluid was sent for studies. Patient tolerated procedure well. Impression: Left parapneumonic effusion. Plan: We will continue antibiotics and repeat a chest x-ray. Hopefully he can go home and we can follow him up in the office. Anesthesia: local Surgeon / Physician: Lyndon Brown Estimated blood loss: none Specimens: other (Pleural fluid was sent for studies.) Condition: stable Disposition: floor Results - Labs CBC & BMP: 03/18/17 06:41 03/18/17 06:41 Discharge Plan - Discharge Medications No Action No Known Home Medications [No Known Home Medications] - Follow Up or Referral - Forms/Instructions
[2017-03-18 15:27] LABS: Eosinophils,Pleural Fluid 9 %; Lymphocytes,Pleural Fluid 63 %; Monocytes,Pleural Fluid 4 %; Neutrophils,Pleural Fluid 24 %; RBC,Pleural Fluid 566 T/CUMM
[2017-03-18] MEDS: AZITHROMYCIN INJ 500 MG in SODIUM CHLORIDE 0.9% 250 ML IV SCH (20:47)
[2017-03-18] MEDS: cefTRIAXone 1,000 MG in SODIUM CHLORIDE 0.9% 100 ML IV SCH (23:16)
[2017-03-19 07:36] VITALS: BP 135/81
[2017-03-19] MEDS: DOCUSATE SODIUM 100 MG CAPSULE PO SCH (08:08)
[2017-03-19] MEDS: PANTOPRAZOLE 40 MG TABLET PO SCH (08:08)
--- NOTE | 2017-03-19 09:02 | Pulmonology Progress Note ---
Pulmonary - PN: Subj Interval history: Patient is a 37-year-old that has been very healthy. He is a smoker but has not had a lot of symptoms. He presented with pleurisy and cough and had a left pleural effusion. He also had a left upper lobe consolidation. He has been on antibiotics for pneumonia. His temp was a little over 99 but is down now. He seems to be feeling better but he still has a little bit of pleurisy. Otherwise he looks quite healthy. The pleural fluid did show some inflammation and is an exudate. Cytology is negative. Clinically he has been doing better and not having any fever or chills. He does have some minimal cough. He says is not having any pleurisy or shortness of breath now. Yesterday he still had some left effusion and we did another thoracentesis and removed 700 cc of fluid. The fluid is not more purulent but still has a lot of white cells. Cytology still pending. He feels well enough to try it at home and will recheck a chest x-ray Wednesday in the office. Exam (Progress Note) - Constitutional Vitals: Period Temp Pulse Resp BP Sys/Block Pulse Ox Last 24 Hr 98.0 F-98.7 F 72-82 18-20 113-135/61-81 95-99 Exam: General appearance: normal weight, no acute distress, he does look healthy, his temperature is better now. - Head Head exam: Present: normal inspection, normocephalic - Eye Eye exam: Present: EOMI. Absent: scleral icterus Pupils: Present: DEMARCO - ENT ENT exam: Present: normal exam - Neck Neck exam: Present: normal inspection. Absent: lymphadenopathy, thyromegaly - Respiratory Respiratory exam: Present: He has better breath sounds on the left and is moving air fairly well now. He has slight decreased breath sounds left base. - Cardiovascular Cardiovascular exam: Present: regular rate and rhythm. Absent: gallop, rubs, systolic murmur - GI/Abdominal GI/Abdominal exam: Present: normal bowel sounds, soft. Absent: distended, organomegaly, tenderness - Extremities Exam Extremities exam: Absent: calf tenderness, edema - Neurological Exam Neurological exam: Present: alert, oriented X3, normal gait, CN II-XII intact - Psychiatric Psychiatric exam: Present: normal mood - Skin Skin exam: Present: warm, dry Results - Labs CBC & BMP: 03/18/17 06:41 03/18/17 06:41 - Diagnostic Findings Procedure: Chest x-ray: image reviewed by me, report reviewed by me (Chest x- ray still shows a small left pleural effusion.) Assessment and Plan (1) Recurrent left pleural effusion Status: Acute Assessment and plan: Patient has an exudative left pleural effusion and the cytology is negative. Cultures are negative so far. This is probably a parapneumonic effusion. The pleural effusion is still exudative but not particularly purulent. He does have some mild eosinophilia and the more lymphocytes in the fluid now. Cytology is pending and will check flow cytometry. Current Visit: Yes (2) Pulmonary nodule, left Status: Acute Assessment and plan: It is unclear whether this is inflammation and infection or malignancy. There is a patchy area in the left upper lobe anteriorly that could be an area of pneumonia or tumor. We will let him go home on antibiotics and just follow him up in the office. Current Visit: Yes (3) Pleuritic chest pain Status: Acute Assessment and plan: Patient presents with mild pleurisy. His breathing is better now. He says his chest feels much better now. Current Visit: Yes (4) Tobacco abuse Status: Acute Assessment and plan: Patient certainly needs to stop smoking. Current Visit: Yes Specialty Discharge - Follow Up or Referrals Follow up with: Lyndon Brown MD [Physician] - 03/22/17 (with CXR)
--- NOTE | 2017-03-19 09:15 | Discharge Summary ---
<Jaxson Asif - Last Filed: 03/19/17 09:21> Hospital Course - Hospital Course Hospital Course: This is a relatively healthy 37 year old male that presented to the ED at [facility] on 03/15 as a lateral transfer from [facility] in [facility] for evaluation of shortness of breath, pleural effusion, and lymphadenopathy. He as no reported medical history. He reported a social history of daily nicotine use. He reports smoking one pack of cigarettes every 3 days. He denied elicit drug use. He presented to the ED at [facility] with a chief complaint of shortness of breath x3 weeks. He was evaluated there. CT chest was ordered and revealed a large left pleural effusion and small pericardial effusion. In addition multiple scattered pulmonary nodules and a prominent lymph node in the anterior superior mediastinum was noted. The patient was transferred to [facility] for continuation of care. After discussion with Dr. Resendiz and Dr. Rodriguez, the patient was admitted under the hospitalist services for medical management during the clinical encounter. Pulmonary was consulted to evaluate and treat. On the day of admission, he was seen and evaluated by Dr. Brown, trade clerk and subsequently underwent a therapeutic and diagnostic thorocentesis in which 1700 ml was removed. Fluid was collected and sent for analysis. He was treated with empiric antibiotics and his pain was managed. His condition improved. On 03/18 chest radiograph obtained suggested the reaccumulation of fluid near the left lung and he underwent therapeutic and diagnostic thorocentesis on yesterday; which yielded 700 ml of output. Pleural fluid cultures have revealed no growth to date. His condition has greatly improved. Today, we feel that he is indeed appropriate for discharge home to follow-up with Dr. Brown as directed for follow-up and biopsy. Diagnosis - Discharge Diagnosis (1) Pleuritic chest pain Status: Acute (2) Pulmonary nodule, left Status: Acute (3) Tobacco abuse Status: Acute Specialty Discharge - Follow Up or Referrals Follow up with: Lyndon Brown MD [Physician] - 03/22/17 10:00 am (with CXR) Discharge Plan - Discharge Medications New Doxycycline Hyclate Cap [Vibramycin Cap] 100 mg PO BID #12 capsule - Follow Up or Referral Follow Up: Lyndon Brown MD [Physician] - 03/22/17 10:00 am (with CXR) - Forms/Instructions Instructions: How to Stop Smoking (DC), Pleural Effusion (DC) Exam - Constitutional Vitals: Period Temp Pulse Resp BP Sys/Block Pulse Ox Last 24 Hr 98.0 F-98.7 F 72-82 18-20 113-135/61-81 95-99 Discharge Results Procedures and tests throughout hospitalization: Pending Orders 03/15/17 17:43 Cytology Request Routine 03/15/17 18:00 AFB Culture/Smears Routine Fungal Culture w/ Prep Routine 03/18/17 14:15 Body Fluid Cult and Gram Stain Routine 03/18/17 14:25 Cytology Request Routine 03/19/17 04:00 XR chest 1V IN AM Labs on day of discharge: Labs from last 24 hours 03/18/17 03/18/17 03/18/17 14:15 14:15 14:15 Fluid LDH 186 Pleural WBC 7229 Pleural RBC [address] 100 Pleural Neutrophils 24 Pleural Lymphocytes 63 Pleural Monocytes 4 Pleural Eosinophils 9 Pleural Diff Comment Pleural Glucose 102 Preliminary micro results at discharge 03/18/17 14:15 Body Fluid Culture - Preliminary Pleural Fluid No growth at 24 hours DS: Provider Date of admission: 03/15/17 13:14 Primary care physician: . No PCP Attending physician on admission: Jaxson Asif CNP Consults: 03/15/17 13:57 Consult to Physician [CONS] Routine Comment: Consulting Provider: Lyndon Brown Consulting Provider Notified: No When should Consulting Provider be notified: Now When should Consulting Provider be notified: Now Person Notified: Bridegt Date Notified: 03/15/17 Time Notified: 16:46 Consult Notification Comment: Bridget called back at [address] Brown is not excavating contractor, Dr Eden is and it will go to him. At 1653 I called Beatriz and gave her the consult for Dr Eden. 03/15/17 15:41 Consult to Pharmacy [CONS] Routine Reason for Pharmacy Consult: Adjust Meds Renal Funct Discharging clinician: Jaxson Asif CNP <Nida Sousa - Last Filed: 03/19/17 09:42> Hospital Course - Hospital Course Hospital Course: Patient seen independently of SHU Asif, agree with hospital course as documented. Patient will follow-up with Dr. Brown on Wednesday with a chest x- ray. - Time spent with patient Time with patient DS: Less than 30 minutes Diagnosis - Discharge Diagnosis (1) Recurrent left pleural effusion Status: Resolved (2) Pulmonary nodule, left Status: Acute (3) Pleuritic chest pain Status: Resolved (4) Tobacco abuse Status: Chronic Discharge Plan - Discharge Data Condition at Discharge: Stable Discharge Diet: advance to your usual diet Activity: resume usual activities as tolerated Hygiene: no restrictions Weight Bearing at Discharge: weight bear as tolerated Driving: no restrictions Contact your physician if you experience:: fever over 101, Shortness of breath Exam - Constitutional General appearance: normal weight - Head Head exam: Present: normocephalic, atraumatic - Eye Eye exam: Present: EOMI Pupils: Present: DEMARCO - ENT ENT exam: Present: normal exam - Neck Neck exam: Present: normal inspection - Respiratory Respiratory exam: Present: clear to auscultation bilaterally. Absent: wheezes - Cardiovascular Cardiovascular exam: Present: regular rate and rhythm - GI/Abdominal GI/Abdominal exam: Present: normal bowel sounds, soft. Absent: tenderness, rebound - Extremities Exam Extremities exam: Present: normal inspection - Back Exam Back exam: Present: normal inspection - Neurological Exam Neurological exam: Present: alert, oriented X3 - Psychiatric Psychiatric exam: Present: normal affect, normal mood - Skin Skin exam: Present: warm, intact
--- NOTE | 2017-03-19 10:33 | XRay Report ---
XR chest 1V Indication: Pneumothorax Comparison: 18 Mar 2017 Findings: The heart and mediastinum are stable in size and configuration. The pulmonary vascularity is normal in caliber. Moderate left pleural effusion is present similar to previous exam. No other lung infiltrates, effusions, pneumothorax or other abnormality is demonstrated. Impression: No significant change. PROCEDURE INTERPRETED AT [facility] DEPARTMENT OF RADIOLOGY Final Report Signed by: Dr. Ronald Ramos
--- NOTE | 2017-03-20 00:20 | ECHO Report ---
Yassine Aguayo Exam Date: 03/19/2017 09:20 Referring Physician: Technologist: Marcia Vallecillo RDCS Age: 37 Ht (in): 70 Wt (lb): 219 Gender: M Exam Location: [facility] Echo Indications: Pleuritic chest pain, Recurrent left pleural effusion, s/p Thoracentesis, Left pulmonary nodule, Shortness of breath, Nicotine dependence, cigarettes, uncomplicated BP: 124 / 66 HR: 80 Rhythm: Sinus Technical Quality: Technically difficult study IMPRESSIONS Technically difficult study Left ventricular ejection fraction is estimated at 55 %. Trace tricuspid valve regurgitation. MEASUREMENTS (Male / Female) Normal Values 2D ECHO LV Diastolic Diameter PLAX 5.0 cm 4.2 - 5.9 / 3.9 - 5.3 cm LV Systolic Diameter PLAX 3.7 cm LV Fractional Shortening PLAX 25.6 % IVS Diastolic Thickness 0.8 cm 0.6 - 1.0 / 0.6 - 0.9 cm LVPW Diastolic Thickness 0.9 cm 0.6 - 1.0 / 0.6 - 0.9 cm RV Internal Dim ED PLAX 3.0 cm Aortic Root Diameter 2.8 cm LA Systolic Diameter LX 4.2 cm 3.0 - 4.0 / 2.7 - 3.8 cm DOPPLER TR Peak Velocity 232.0 cm/s TR Peak Gradient 21.5 mmHg FINDINGS Left Ventricle Normal left ventricular cavity size. Normal left ventricular wall thickness. Left ventricular ejection fraction is estimated at 55 %. Right Ventricle The right ventricle is normal in size and function. Right Atrium The right atrium is normal in size. Left Atrium The left atrium is normal in size. Mitral Valve Morphologically normal mitral valve without significant stenosis or prolapse. There is no mitral regurgitation. Aortic Valve Morphologically normal aortic valve without significant sclerosis or stenosis. There is no aortic regurgitation. Tricuspid Valve Morphologically normal tricuspid valve. Trace tricuspid valve regurgitation. Tricuspid regurgitation velocities suggest a PAP of 32 mmHg. Pulmonic Valve Morphologically normal pulmonic valve without significant stenosis. There is no pulmonic regurgitation. Pericardium Normal pericardium without effusion. Aorta Normal ascending aorta dimension. Lacho Devries (Electronically Signed) Final Date: 20 Mar 2017 00:19
--- NOTE | 2017-03-22 11:15 | Pathology Report from [facility] ---
ACCESSION # : [id number] PATIENT NAME : Yassine Aguayo ORDERING DR : SHELDON LORD MD CLINICAL HX: Parapneumonic effusion POST-OP DX: Same SPECIMEN INFO: Fluid-Pleural, left - 1700 mls cloudy dark straw colored CLASS: II CLASS COMMENTS: Mesothelial cells and inflammation.CELL BLOCK: Same. CLASS LEGEND: CLASS 0 Material inadequate for diagnosis because of (see comment) CLASS I Absence of atypical or abnormal cells CLASS II Atypical Cytology but no evidence of malignancy CLASS III Cytology suggestive of but not conclusive for malignancy CLASS IV Cytology strongly suggestive of malignancy CLASS V Cytology conclusive for malignancy SERVICE DATE: 03/19/2017 REPORT DATE: 03/22/2017 PATHOLOGIST: Luis Miguel Varma M.D. [facility]
== END 2017-03-19 11:00 | disposition home or self-care (01) | DRG 188 ==
LOC: N.ED 12:24 → N.EDINP 13:14 → SUATTDRO 13:14 → N.5E 13:56
PROVIDERS: ADMIT Nurse Practitioner; ATTEND Internal Medicine